=== PATIENT | female | born 1980 | race Hispanic/Latino ===

== ENCOUNTER 2025-02-13 13:13 | Observation (INO) | payer SELFPAY ==
[~2025-02-13] VITALS: Ht 154.9 cm; Wt 59.0 kg
[~2025-02-13 13:13] MED LIST: CIPRO500 MG PO; IBUPROFEN400 MG PO; ULTRAM 50MG50 MG PO
[2025-02-13 14:20] VITALS: TEMP 98.1
[2025-02-13] MEDS ORDERED: ADENOSINE 6MG/2ML 0 ML ONE (14:39)
[2025-02-13] MEDS ORDERED: SODIUM CHLORIDE 0.9% 1000ML 1,000 ML ONE (14:40)
[2025-02-13] MEDS: ADENOSINE 6 MG/2 ML VIAL IV ONE (14:56)
[2025-02-13] MEDS: SODIUM CHLORIDE 0.9% 1000ML 1,000 ML IV STA ×2 (14:58→18:47)
[2025-02-13 15:04] LABS: BASOPHILS % 0.3 % (0.0-1.0); EOSINOPHILS # (AUTO) 0.1 (0.0-0.4); EOSINOPHILS % 0.7 % (0.0-6.0); HEMATOCRIT 40.1 % (34.2-44.1); HEMOGLOBIN 13.6 g/dL (12.0-16.0); LYMPHOCYTES # (AUTO) 3.4 (1.0-3.2); LYMPHOCYTES % 29.1 % (18.0-39.1); MEAN CORPUSCULAR HEMOGLOBIN 29.3 pg (28-32); MEAN CORPUSCULAR HGB CONC 33.9 g/dL (31-35); MEAN CORPUSCULAR VOLUME 86.4 fL (81-99); MONOCYTES # (AUTO) 0.8 (0.2-0.8); MONOCYTES % 6.6 % (4.4-11.3); NEUTROPHILS # (AUTO) 7.3 (2.1-6.9); NEUTROPHILS % 63.1 % (38.7-80.0); PLATELET COUNT 279 x10e3/uL (140-360); RED BLOOD COUNT 4.64 x10e6/uL (3.6-5.1); RED CELL DISTRIBUTION WIDTH 13.6 % (11.7-14.4)
[2025-02-13 15:14] LABS: INR 0.85; PARTIAL THROMBOPLASTIN TIME 25.6 seconds (23.8-35.5); PROTHROMBIN TIME 12.2 seconds (11.9-14.5)
[2025-02-13 15:28] LABS: ALANINE AMINOTRANSFERASE 41 IU/L (0-55); ALBUMIN 4.3 g/dL (3.5-5.0); ALBUMIN/GLOBULIN RATIO 1.3 (0.8-2.0); ALKALINE PHOSPHATASE 73 IU/L (40-150); ANION GAP 16.4 mmol/L (8-16); BILIRUBIN,TOTAL 0.6 mg/dL (0.2-1.2); BLOOD UREA NITROGEN 14 mg/dL (7-26); BUN/CREATININE RATIO 19 (6-25); CALCIUM 9.5 mg/dL (8.4-10.2); CARBON DIOXIDE 20 mmol/L (22-29); CHLORIDE 107 mmol/L (98-107); CREATININE, SERUM 0.75 mg/dL (0.57-1.11); EST GLOMERULAR FILTRATION RATE 101 ML/MIN (>=60); GLUCOSE 104 mg/dL (74-118); MAGNESIUM 1.7 MG/DL (1.3-2.1); POTASSIUM 4.4 mmol/L (3.5-5.1); SODIUM 139 mmol/L (136-145); TOTAL PROTEIN 7.7 g/dL (6.5-8.1)
[2025-02-13 15:34] LABS: TROPONIN I 0.112 ng/mL (0-0.300)
[2025-02-13 17:30] VITALS: PULSE 92; RESP 8
[2025-02-13] MEDS: METOPROLOL TARTRATE 25 MG TAB PO ONE (18:17)
[2025-02-13] MEDS: SODIUM CHLORIDE 0.9% 500ML 500 ML IV ONE (18:47)
[2025-02-13 20:59] LABS: TROPONIN I 0.451 ng/mL (0-0.300)
[2025-02-13] MEDS ORDERED: Morphine 2mg Syringe 2 MG/ML SYR IV PRN (21:00)
[2025-02-13] MEDS ORDERED: ONDANSETRON HCL INJ 2MG/ML 2ML 2 MG/ML VIAL IV PRN (21:00)
[2025-02-13 22:25] VITALS: PULSE 79; RESP 18; O2SAT 99
[2025-02-13 22:45] VITALS: BP 133/82; PULSE 94; RESP 18; TEMP 98.5; O2SAT 100
[2025-02-13] MEDS: SODIUM CHLORIDE 0.9% 1000ML 1,000 ML IV SCH (22:54)
[2025-02-13 23:22] LABS: BILIRUBIN,URINE NEGATIVE (NEGATIVE); CLARITY,URINE CLEAR (CLEAR); COLOR,URINE YELLOW (YELLOW); GLUCOSE, URINE NEGATIVE (NEGATIVE); KETONES,URINE NEGATIVE (NEGATIVE); LEUKOCYTE ESTERASE ,URINE NEGATIVE (NEGATIVE); NITRITE,URINE NEGATIVE (NEGATIVE); PH,URINE 5.5 (5 - 7); PROTEIN,URINE DIPSTICK NEGATIVE (NEGATIVE); URINE UROBILINOGEN 0.2 mg/dL (0.2 - 1)
[2025-02-13 23:27] LABS: AMPHETAMINES SCREEN,URINE NEGATIVE (NEGATIVE); BENZODIAZEPINES SCREEN,URINE NEGATIVE (NEGATIVE); CANNABINOIDS SCREEN,URINE NEGATIVE (NEGATIVE); COCAINE SCREEN,URINE NEGATIVE (NEGATIVE); METHADONE SCREEN, URINE NEGATIVE (NEGATIVE); OPIATES SCREEN,URINE NEGATIVE (NEGATIVE); PHENCYCLIDINE SCREEN,URINE NEGATIVE (NEGATIVE)
[2025-02-13 23:40] LABS: BACTERIA,URINE MANY /HPF; WBC,URINE (MAN) 21-50 /HPF (0-5)
[2025-02-13 23:41] LABS: EPITHELIAL CELLS,URINE MANY /LPF
[2025-02-14] VITALS (11 sets, daily range): BP systolic 112–141; BP diastolic 68–90; PULSE 69–85; RESP 17–21; TEMP 97.9–98.5; O2SAT 100
[2025-02-14 04:52] LABS: BASOPHILS % 0.4 % (0.0-1.0); EOSINOPHILS # (AUTO) 0.1 (0.0-0.4); EOSINOPHILS % 1.8 % (0.0-6.0); HEMATOCRIT 30.2 % (34.2-44.1); HEMOGLOBIN 10.3 g/dL (12.0-16.0); LYMPHOCYTES # (AUTO) 2.4 (1.0-3.2); LYMPHOCYTES % 34.8 % (18.0-39.1); MEAN CORPUSCULAR HEMOGLOBIN 30.1 pg (28-32); MEAN CORPUSCULAR HGB CONC 34.1 g/dL (31-35); MEAN CORPUSCULAR VOLUME 88.3 fL (81-99); MONOCYTES # (AUTO) 0.4 (0.2-0.8); MONOCYTES % 6.2 % (4.4-11.3); NEUTROPHILS # (AUTO) 3.8 (2.1-6.9); NEUTROPHILS % 56.7 % (38.7-80.0); PLATELET COUNT 202 x10e3/uL (140-360); RED BLOOD COUNT 3.42 x10e6/uL (3.6-5.1); RED CELL DISTRIBUTION WIDTH 13.7 % (11.7-14.4); WHITE BLOOD COUNT 6.75 x10e3/uL (4.8-10.8)
[2025-02-14 05:15] LABS: TROPONIN I 0.276 ng/mL (0-0.300)
[2025-02-14 06:09] LABS: ALBUMIN 3.4 g/dL (3.5-5.0); ALBUMIN/GLOBULIN RATIO 1.5 (0.8-2.0); ANION GAP 11.4 mmol/L (8-16); BILIRUBIN,TOTAL 0.8 mg/dL (0.2-1.2); CALCIUM 7.8 mg/dL (8.4-10.2); CREATININE, SERUM 0.61 mg/dL (0.57-1.11); TOTAL PROTEIN 5.7 g/dL (6.5-8.1)
[2025-02-14 06:10] LABS: POTASSIUM 3.4 mmol/L (3.5-5.1)
[2025-02-14] MEDS ORDERED: HYDRALAZINE HCL 25 MG TAB PO PRN (09:15)
[2025-02-14] MEDS ORDERED: ONDANSETRON HCL 4 MG ORAL DISINTEGRATING TAB PO PRN (09:15)
[2025-02-14 09:27] LABS: MAGNESIUM 1.6 MG/DL (1.3-2.1); PHOSPHORUS 2.2 MG/DL (2.3-4.7)
[2025-02-14 10:00] LABS: THYROID STIMULATING HORMONE 1.603 uIU/mL (0.350-4.940)
[2025-02-14] MEDS: METOPROLOL TARTRATE 25 MG TAB PO SCH (10:20)
[2025-02-14 10:38] LABS: TROPONIN I 0.212 ng/mL (0-0.300)
[2025-02-14] MEDS: ACETAMINOPHEN 325 MG TAB PO PRN (15:46)
[2025-02-15 00:36] VITALS: BP 126/75; PULSE 65; RESP 18; TEMP 97.9; O2SAT 100
[2025-02-15 04:00] VITALS: BP 129/77; PULSE 76; RESP 17; TEMP 98; O2SAT 100
[2025-02-15 08:47] VITALS: BP 133/76; PULSE 74; RESP 17; TEMP 98.5; O2SAT 100
[2025-02-15 09:00] VITALS: BP 133/76; PULSE 74; RESP 17; TEMP 98.5; O2SAT 100
[2025-02-15 12:07] VITALS: BP 121/71; PULSE 76; RESP 17; TEMP 98.6; O2SAT 100
== END 2025-02-15 14:15 | disposition home or self-care (01) ==
LOC: ER 14:45 → ERHOLD 21:02 → MED/SURG3 22:35
PROVIDERS: ADMIT Internal Medicine; ATTEND Internal Medicine
DX: I47.10 Supraventricular tachycardia, unspecified (principal); I10 Essential (primary) hypertension
CPT/HCPCS: 36415 ×2; 71045; 80053 ×2; 80307; 81001; 82550 ×2; 83735 ×2; 84100; 84443; 84484 ×2; 84702; 85025 ×2; 85379; 85610; 85730; 93005; 93306; 94799 ×2; 99284; G0378 ×3; J7030 ×2; J7040; J0153